=== PATIENT | female | born 1955 | race Caucasian/White ===

== ENCOUNTER → 2020-11-01 | Outpatient (CLI) | payer MEDICARE | END | disposition home or self-care (01) | LOC: CVU 10:35 | PROVIDERS: ATTEND Internal Medicine Cardiovascular Disease | DX: I06.1 Rheumatic aortic insufficiency (principal); I48.0 Paroxysmal atrial fibrillation | CPT/HCPCS: 93306; 93356 ==

== ENCOUNTER 2021-01-02 06:10 | Day surgery (SDC) | payer MEDICARE ==
[~2021-01-02] VITALS: Ht 177.8 cm; Wt 75.0 kg
[2021-01-02] MEDS ORDERED: LEVO75TA5 PO (06:58)
[2021-01-02] MEDS ORDERED: APIX5TAB PO (06:58)
[2021-01-02] MEDS ORDERED: SODIUM CHLORIDE 0.9% 1,000 ML IV SCH (07:00)
[2021-01-02 07:10] LABS: BASOPHILS % (AUTO) 1 % (0-1); EOSINOPHILS % (AUTO) 2 % (1-7); LYMPHOCYTES % (AUTO) 41 % (22-44); MEAN CORPUSCULAR HEMOGLOBIN 32.4 pg (27.0-34.8); MEAN PLATELET VOLUME 7.5 fL (7.4-10.4); MONOCYTES % (AUTO) 9 % (2-9); NEUTROPHILS % (AUTO) 48 % (42-75); PLATELET COUNT 234 x10^3/uL (130-400); RED BLOOD COUNT 4.86 x10^6/uL (3.82-5.3); RED CELL DISTRIBUTION WIDTH 13.1 % (9.6-15.2)
[2021-01-02 07:20] LABS: ANION GAP 6 mmol/L (5-15); CALCIUM 9.4 mg/dL (8.5-10.1); CHLORIDE 107 mmol/L (98-107)
[2021-01-02 07:33] LABS: ALANINE AMINOTRANSFERASE 39 U/L (12-78); ALKALINE PHOSPHATASE 65 U/L (45-117); BILIRUBIN,TOTAL 0.6 mg/dL (0.2-1.0)
[2021-01-02] MEDS ORDERED: FENTANYL PF 100 MCG/2ML ONE (07:53)
[2021-01-02] MEDS ORDERED: MIDAZOLAM 1 MG/ML, 5ML ONE (07:53)
[2021-01-02 07:54] LABS: INTERNATIONAL NORMALIZED RATIO 1.05 (0.93-1.1); PROTHROMBIN TIME 11.2 Seconds (9.6-11.5)
[2021-01-02] MEDS ORDERED: LIDOCAINE 2%, 20ML ONE (07:54)
[2021-01-02] MEDS ORDERED: ISOPROTERENOL 0.2MG/ML, 5ML ONE (07:54)
[2021-01-02] MEDS ORDERED: APIXABAN 5 MG TABLET PO SCH (21:00)
[2021-01-03] MEDS ORDERED: LEVOTHYROXINE 75 MCG TABLET PO SCH (09:00)
== END 2021-01-02 17:21 | disposition home or self-care (01) ==
LOC: CACL 06:10 → 5SO 10:17 → CACL 17:21
PROVIDERS: ATTEND Internal Medicine Cardiovascular Disease
DX: I47.1 Supraventricular tachycardia (principal); I48.0 Paroxysmal atrial fibrillation; E03.9 Hypothyroidism, unspecified; Z79.01 Long term (current) use of anticoagulants; Z79.890 Hormone replacement therapy; Z79.899 Other long term (current) drug therapy
CPT/HCPCS: 36415; 71045; 80053; 84443; 85025; 85610; 85730; 93613; 93621; 93623; 93653; 93655; 99156; 99157; C1730; C1732; C1733; C1766; C1894; C2630; J2250; J3010; 93654; G0378